=== PATIENT | male | born 1975 | race Caucasian/White ===

== ENCOUNTER 2018-06-08 10:19 | Emergency (ER) | payer SELFPAY ==
[2018-06-08] MEDS ORDERED: Penicillin G Benzathine 1,200,000 Units/2 ML Syringe IM ONE (10:57)
[2018-06-08] MEDS ORDERED: Acetaminophen 325 MG Tab PO ONE (11:23)
--- NOTE | 2018-06-08 11:24 | EDM.PDOC ---
ED HPI GENERAL MEDICAL PROBLEM - General Chief Complaint: ENT Problem Stated Complaint: THROAT, EAR PAIN Time Seen by Provider: 06/08/18 10:37 Source of Information: Reports: Patient History Limitations: Reports: No Limitations - History of Present Illness INITIAL COMMENTS - FREE TEXT/NARRATIVE: The patient presents with a sore throat, fever, and left ear pain. This all started yesterday. He has no cough or congestion. He has no chest pain or shortness of breath. He has no abdominal pain nausea or vomiting. He has not been around anyone who is sick. Onset: Gradual Duration: Day(s): (Yesterday) Location: Reports: Other (throat and left ear) Quality: Reports: Sharp Severity: Moderate Improves with: Reports: None Worsens with: Reports: None Associated Symptoms: Reports: Fever/Chills. Denies: Chest Pain, Cough, Headaches, Nausea/Vomiting, Shortness of Breath Throat Pain Score (Numeric/FACES): 7 - Related Data Allergies Allergy/AdvReac Type Severity Reaction Status Date / Time No Known Allergies Allergy Verified 06/08/18 10:32 Home Meds: Home Meds Hydrocodone/Acetaminophen [Hydrocodon-Acetaminophen 5-325] 1 - 2 each PO Q6HR PRN #6 tablet 06/08/18 [Rx] Past Medical History - Past Surgical History Musculoskeletal Surgical History: Reports: Shoulder Surgery, Other (See Below) Other Musculoskeletal Surgeries/Procedures:: ankle, knee and shoulder surgery Social & Family History - Tobacco Use Smoking Status *Q: Current Every Day Smoker Years of Tobacco use: 10 Packs/Tins Daily: 1 - Caffeine Use Caffeine Use: Reports: Soda - Recreational Drug Use Recreational Drug Use: No ED ROS ENT - Review of Systems Review Of Systems: See Below Constitutional: Reports: Fever. Denies: Chills HEENT: Reports: Ear Pain (left), Throat Pain Respiratory: Reports: No Symptoms Cardiovascular: Reports: No Symptoms Endocrine: Reports: No Symptoms GI/Abdominal: Reports: No Symptoms Musculoskeletal: Reports: No Symptoms Skin: Reports: No Symptoms ED EXAM, ENT - Physical Exam Exam: See Below Exam Limited By: No Limitations General Appearance: Alert, No Apparent Distress Ears: Normal External Exam, Normal Canal, TM Erythema (Left), TM Fluid (left) Nose: Normal Inspection Mouth/Throat: Tonsillar Erythema, Tonsillar Exudates, Tonsillar Swelling (Right is worse then the left) Head: Atraumatic, Normocephalic Neck: Lymphadenopathy (L), Lymphadenopathy (R) Respiratory/Chest: No Respiratory Distress, Lungs Clear, Normal Breath Sounds Cardiovascular: Regular Rate, Rhythm, No Edema, No Murmur GI/Abdominal: Soft, Non-Tender, No Organomegaly, No Mass Back: Normal Inspection Extremities: Normal Inspection Neurological: Alert, Oriented, No Motor/Sensory Deficits Course - Vital Signs Last Recorded V/S: Last Vital Signs Temp 101.8 F H 06/08/18 10:29 Pulse 95 06/08/18 10:29 Resp 18 06/08/18 10:29 BP 132/89 06/08/18 10:29 Pulse Ox 96 06/08/18 10:29 - Orders/Labs/Meds Orders: Active Orders 24 hr Category Date Time Status STREP SCRN A RAPID W CULT CONF [RM] Stat Lab 06/08/18 11:02 Results Meds: Medications Discontinued Medications Generic Name Dose Route Start Last Admin Trade Name Freq PRN Reason Stop Dose Admin Acetaminophen 975 mg 06/08/18 11:23 06/08/18 11:31 Tylenol PO 06/08/18 11:24 975 mg NOW ONE Administration Penicillin G Benzathine 1.2 millunits 06/08/18 10:57 06/08/18 11:04 Bicillin L-A IM 06/08/18 10:58 1.2 millunits ONETIME ONE Administration - Re-Assessments/Exams Free Text/Narrative Re-Assessment/Exam: 06/08/18 11:22 I ordered a rapid strep and penicillin G 1.2units IM. I will give him some tylenol for the fever. 06/08/18 11:37 The rapid strep was positive. Departure - Departure Time of Disposition: 11:40 Disposition: Home, Self-Care 01 Condition: Good Clinical Impression: Strep tonsillitis Otitis media Qualifiers: Otitis media type: serous Chronicity: acute Laterality: left Recurrence: non- recurrent Qualified Code(s): H65.02 - Acute serous otitis media, left ear - Discharge Information *PRESCRIPTION DRUG MONITORING PROGRAM REVIEWED*: No *COPY OF PRESCRIPTION DRUG MONITORING REPORT IN PATIENT NICK: No Prescriptions: Hydrocodone/Acetaminophen [Hydrocodon-Acetaminophen 5-325] 1 - 2 each PO Q6HR PRN #6 tablet PRN Reason: Pain Referrals: PCP,None [Primary Care Provider] - Anna Link PA-C [Physician Windows Systems Engineer] - 1 Week Forms: ED Department Discharge Additional Instructions: Take motrin or tylenol for the fever and pain. The shot of antibiotic we gave you should cover this. You should notice a difference in a couple days. Please return if you cannot swallow or if the pain is worse. Drink plenty of fluids. Drink cold water if you can. - My Orders Last 24 Hours: My Active Orders 06/08/18 11:02 STREP SCRN A RAPID W CULT CONF [RM] Stat - Assessment/Plan Last 24 Hours: My Active Orders 06/08/18 11:02 STREP SCRN A RAPID W CULT CONF [RM] Stat
== END 2018-06-08 11:45 | disposition home or self-care (01) ==
LOC: JD.ED 10:19
DX: J03.00 Acute streptococcal tonsillitis, unspecified (principal); H65.02 Acute serous otitis media, left ear; F17.210 Nicotine dependence, cigarettes, uncomplicated
CPT/HCPCS: 87430; 96372; 99282; A9270; J0561; 99283

== ENCOUNTER 2018-06-10 10:14 | Emergency (ER) | payer SELFPAY ==
--- NOTE | 2018-06-10 12:09 | EDM.PDOC ---
ED HPI GENERAL MEDICAL PROBLEM - General Chief Complaint: ENT Problem Stated Complaint: STREP THROAT RETURN VISIT Time Seen by Provider: 06/10/18 10:33 Source of Information: Reports: Patient, Family (Spouse), RN Notes Reviewed - History of Present Illness INITIAL COMMENTS - FREE TEXT/NARRATIVE: 43-year-old male had onset of sore throat about 5 or 6 days ago. Was seen in ED 2 days ago, strep pos, given bicillin IM. Still having severe pain with swallowing, is of pain pills, took last pain pill a couple of hrs ago. Throat still feels swollen. Has also had some nasal lake., occasional cough. No further fever or chills. - Related Data Allergies Allergy/AdvReac Type Severity Reaction Status Date / Time No Known Allergies Allergy Verified 06/10/18 10:27 Home Meds: Home Meds Hydrocodone/Acetaminophen [Hydrocodon-Acetaminophen 5-325] 1 - 2 each PO Q6HR PRN #6 tablet 06/08/18 [Rx] Doxycycline [Vibramycin] 100 mg PO BID #20 tab 06/10/18 [Rx] Hydrocodone/Acetaminophen [Taylor 5-325 Tablet] 1 each PO Q4HR PRN #20 tablet [Rx] Ibuprofen [Ibu] 600 mg PO ASDIRECTED PRN 06/10/18 [History] Past Medical History - Past Surgical History Musculoskeletal Surgical History: Reports: Shoulder Surgery, Other (See Below) Other Musculoskeletal Surgeries/Procedures:: ankle, knee and shoulder surgery Social & Family History - Tobacco Use Smoking Status *Q: Current Every Day Smoker Years of Tobacco use: 10 Packs/Tins Daily: 1 - Caffeine Use Caffeine Use: Reports: Coffee - Recreational Drug Use Recreational Drug Use: No ED ROS ENT - Review of Systems Review Of Systems: See Below Constitutional: Reports: Fever (Gone) HEENT: Reports: Rhinitis, Throat Pain, Throat Swelling Respiratory: Denies: Shortness of Breath (Mild) Cardiovascular: Denies: Chest Pain GI/Abdominal: Denies: Abdominal Pain, Diarrhea, Vomiting Musculoskeletal: Reports: No Symptoms Skin: Reports: No Symptoms Neurological: Reports: No Symptoms ED EXAM, ENT - Physical Exam Exam: See Below General Appearance: Alert, Mild Distress Eye Exam: Bilateral Eye: PERRL Nose: Normal Inspection Mouth/Throat: Tonsillar Erythema, Tonsillar Exudates, Tonsillar Swelling Head: No: Facial Swelling, Facial Tenderness Neck: Supple, Full Range of Motion, Lymphadenopathy (L) (Mild anterior), Lymphadenopathy (R) Respiratory/Chest: No Respiratory Distress ( mild anterior), Lungs Clear, Normal Breath Sounds Cardiovascular: Regular Rate, Rhythm Extremities: Normal Inspection, Normal Range of Motion Neurological: Alert, Oriented, No Motor/Sensory Deficits Skin: Warm, Dry, Normal Color Course - Vital Signs Last Recorded V/S: Last Vital Signs Temp 96.7 F 06/10/18 10:24 Pulse 86 06/10/18 10:24 Resp 16 06/10/18 10:24 BP 120/87 06/10/18 10:24 Pulse Ox 97 06/10/18 10:24 - Orders/Labs/Meds Labs: Laboratory Tests 06/10/18 06/10/18 Range/Units 10:53 10:53 WBC 10.30 H (4.23-9.07) K/mm3 RBC 4.97 (4.63-6.08) M/mm3 Hgb 14.6 (13.7-17.5) gm/L Hct 42.4 (40.1-51.0) % MCV 85.3 (79.0-92.2) fl MCH 29.4 (25.7-32.2) pg MCHC 34.4 (32.2-35.5) g/dl RDW Std Deviation 37.9 (35.1-43.9) fL Plt Count 244 (163-337) K/mm3 MPV 10.6 (9.4-12.3) fl Neutrophils % (Manual) 63 H (40-60) % Band Neutrophils % 3 (0-10) % Lymphocytes % (Manual) 22 (20-40) % Atypical Lymphs % 5 % Monocytes % (Manual) 6 (2-10) % Eosinophils % (Manual) 1 (0.8-7.0) % Basophils % (Manual) 0 L (0.2-1.2) Platelet Estimate Adequate Plt Morphology Comment Normal RBC Morph Comment Normal Monoscreen Negative (NEGATIVE) - Re-Assessments/Exams Free Text/Narrative Re-Assessment/Exam: 06/10/18 15:35 I did check a white blood count, high range of normal with mildly increased states, only 1 band. Lymphocyte differential is not elevated, [place] negative. Been going to add doxycycline to his antibiotic treatment and have written for more hydrocodone to take as needed. Discharge instructions as documented. Departure - Departure Time of Disposition: 12:03 Disposition: Home, Self-Care 01 Condition: Fair Clinical Impression: Tonsillitis - Discharge Information Prescriptions: Hydrocodone/Acetaminophen [Taylor 5-325 Tablet] 1 each PO Q4HR PRN #20 tablet PRN Reason: Pain Doxycycline [Vibramycin] 100 mg PO BID #20 tab Instructions: Tonsillitis, [id number] Referrals: PCP,None [Primary Care Provider] - Forms: ED Department Discharge, ED Return to Work/School Form Additional Instructions: Continue to rest, drink plenty of fluids to maintain hydration, doxycycline 200 mg twice daily today and then 100 mg twice daily until gone, Advil or ibuprofen 2-3 times daily, be sure to take that with food so that doesn't upset your stomach, Tylenol in addition 2-3 times daily or hydrocodone 3-4 times daily. Do not take Tylenol and hydrocodone at the same time, do not drive or work when taking hydrocodone. Follow-up at our [facility] medical clinic if not much better by Wednesday,call [phone] for appointment as needed, return to ED as needed if symptoms worsening in any way.
== END 2018-06-10 12:17 | disposition home or self-care (01) ==
LOC: JD.ED 10:14
DX: J03.90 Acute tonsillitis, unspecified (principal); F17.210 Nicotine dependence, cigarettes, uncomplicated
CPT/HCPCS: 36415; 85007; 85027; 86308; 99283